=== PATIENT | female | born 1965 | race Caucasian/White ===

== ENCOUNTER → 2023-07-24 | Outpatient (CLI) | payer MEDICARE, MEDICAID ==
[~2023-07-24] MED LIST: CATHETER FLUSH 10 ML SYR IVP PRN
--- NOTE | 2023-07-24 12:46 | Diagnostic Imaging Report ---
PET/CT INDICATION: Renal cell carcinoma on the left. TECHNIQUE: PET/CT imaging was obtained from the base of the skull through the pelvis after the administration of 11.01 mCi of F-18 fluorodeoxyglucose into the right antecubital fossa. Limited CT imaging was utilized for localization and attenuation correction purposes. The low energy CT utilized for attenuation correction is not considered to be of high enough spatial resolution to allow in and of itself a separate anatomical analysis. Height 5' 5" weight 260 pounds, blood glucose 79. There are no prior PET/CT examinations or cross-sectional studies available for comparison. By history the patient has had a prior left nephrectomy for carcinoma in 2015. The CT images do show that the left kidney is surgically absent. There is no evidence for a mass in this area nor is any hypermetabolic activity in this region to suggest neoplastic disease. There is no other hypermetabolic activity identified in the abdomen or pelvis. The lungs are generally clear. There is no parenchymal lung mass identified to suggest metastatic disease. There is no hypermetabolic activity associated with the lung parenchyma or the mediastinum. There is 1.3 x 1.7 cm lymph node in the aorticopulmonary window. However, this node is not hypermetabolic. There is generalized increased hypermetabolic activity in the paraspinal musculature on the left near the cervicothoracic junction. The maximum SUV in this area is 5.3. However, I suspect this finding is more likely due to an inflammatory/infectious process or muscular activity than to neoplasm. There is also slightly increased hypermetabolic activity in the pectoralis muscle on the left and there is slight distortion of the subcutaneous fat in this area. The coronal images do suggest that there is generalized enlargement of the soft tissues about the left upper extremity. Reportedly, the patient has a diagnosis of lymphedema and the abnormal uptake involving the musculature may be related to that condition. There are a few small left axillary nodes but these are not hypermetabolic. There is no other hypermetabolic activity to suggest the presence of malignancy. The CT images failed to show any sign of an acute abnormality other than the changes in the left supraclavicular region and left upper extremity. IMPRESSION: 1. There is no evidence for a mass in the left renal fossa to suggest recurrent malignancy and there is no hypermetabolic activity in this region either. 2. There is no other hypermetabolic activity to suggest metastatic disease. 3. The generalized increased activity involving the paraspinal musculature on the left and the left pectoralis muscle may be due to inflammation/infection related to the patient's lymphedema of the left upper extremity. Clinical follow-up is recommended. Dictated by: Dictated on workstation # [id number]
== END ==
LOC: RAD 09:17
PROVIDERS: ATTEND Physician Assistant
DX: C64.2 Malignant neoplasm of left kidney, except renal pelvis (principal)
CPT/HCPCS: 82947